=== PATIENT | female | born 1985 | race Caucasian/White ===

== ENCOUNTER 2017-05-25 22:11 | Emergency (ER) | payer SELFPAY ==
[~2017-05-25] VITALS: Ht 162.6 cm; Wt 56.0 kg
[2017-05-25 22:21] VITALS: Ht 162.6 cm; Wt 56.0 kg
== END 2017-05-25 22:49 | disposition left against medical advice (07) ==
LOC: FTE 22:11
DX: Z53.21 Procedure and treatment not carried out due to patient leaving prior to being seen by health care provider (principal)

== ENCOUNTER 2017-11-12 20:42 | Emergency (ER) | END 2017-11-13 00:13 | disposition home or self-care (01) ==